=== PATIENT | female | born 1985 | race African-American/Black ===

== ENCOUNTER 2018-10-07 21:10 | Emergency (ER) | payer MEDICAID ==
[2018-10-07 21:14] VITALS: BP 123/81
[2018-10-07] MEDS ORDERED: METF500T17 PO (21:18)
[2018-10-07 21:45] LABS: HCG UR SG 1.028 (1.003-1.030)
[2018-10-07 21:50] LABS: MICROSCOPIC INDICATED
[2018-10-07 21:51] LABS: CULTURE INDICATED? YES
== END 2018-10-07 23:10 | disposition home or self-care (01) ==
LOC: ED 21:44
DX: O23.11 Infections of bladder in pregnancy, first trimester (principal); Z3A.01 Less than 8 weeks gestation of pregnancy
CPT/HCPCS: 81001; 81025; 82962; 87086; 99283

== ENCOUNTER 2018-10-16 22:04 | Emergency (ER) | payer MEDICAID ==
[~2018-10-16] VITALS: Ht 167.6 cm; Wt 116.6 kg
[~2018-10-16 22:04] MED LIST: METF500T17 PO
[2018-10-17 00:28] LABS: BASOPHILS # (AUTO) 0.15 x10^3/uL (0-0.1); BASOPHILS % (AUTO) 1 % (0-1); EOSINOPHILS # (AUTO) 0.39 x10^3/uL (0-0.4); EOSINOPHILS % (AUTO) 2 % (1-7); LYMPHOCYTES % (AUTO) 19 % (22-44); MD NO; MEAN CORPUSCULAR HEMOGLOBIN 22.6 pg (27.0-34.8); MEAN CORPUSCULAR HGB CONC 32.1 g/dL (32.4-35.8); MEAN CORPUSCULAR VOLUME 70.3 fL (80-100); MEAN PLATELET VOLUME 8.5 fL (7.4-10.4); MONOCYTES # (AUTO) 1.13 x10^3/uL (0.2-0.8); MONOCYTES % (AUTO) 6 % (2-9); NEUTROPHILS # (AUTO) 12.87 x10^3/uL (1.8-6.8); NEUTROPHILS % (AUTO) 72 % (42-75); PLATELET COUNT 471 x10^3/uL (130-400); RED BLOOD COUNT 5.09 x10^6/uL (3.82-5.3); RED CELL DISTRIBUTION WIDTH 17.7 % (9.6-15.2)
[2018-10-17] MEDS ORDERED: ONDANSETRON ODT 4 MG PO ONE (00:30)
[2018-10-17 00:37] LABS: ALANINE AMINOTRANSFERASE 16 U/L (12-78); ALBUMIN 3.7 g/dL (3.4-5.0); ANION GAP 7 mmol/L (5-15); CALCIUM 9.1 mg/dL (8.5-10.1); CHLORIDE 107 mmol/L (98-107); CREATININE 0.85 mg/dL (0.55-1.02)
[2018-10-17] MEDS ORDERED: ONDANSETRON ODT 4 MG ONE (00:43)
[2018-10-17 00:54] LABS: ALKALINE PHOSPHATASE 93 U/L (45-117); BILIRUBIN,TOTAL 0.4 mg/dL (0.2-1.0); TOTAL PROTEIN 7.9 g/dL (6.4-8.2)
[2018-10-17 01:11] LABS: CULTURE INDICATED? YES; MICROSCOPIC INDICATED
[2018-10-17] MEDS ORDERED: SODIUM CHLORIDE 0.9% 1,000ML IVBOLUS ONE (01:30)
[2018-10-17] MEDS ORDERED: ACETAMINOPHEN 1,000 MG/100 ML IV IVPB STA (01:31)
[2018-10-17] MEDS ORDERED: ACETAMINOPHEN 650 MG SUPP PR STA (01:40)
[2018-10-17] MEDS ORDERED: ACETAMINOPHEN 650 MG SUPP ONE (01:45)
[2018-10-17] MEDS ORDERED: DIPHENHYDRAMINE 50 MG/ML, 1ML ONE (01:57)
[2018-10-17] MEDS ORDERED: DIPHENHYDRAMINE 50 MG/ML, 1ML IVPush ONE (02:00)
--- NOTE | 2018-10-17 02:20 | NUR ---
PT HERE FOR A BAD MONTERROSO. PT REPORTS HER BG HIGH AND IS 7 WEEKS . 146 BG IN TRIAGE
--- NOTE | 2018-10-17 02:21 | NUR ---
GIVEN MED IV WAS STARTED PT IS RESTING VSS STABLE
--- NOTE | 2018-10-17 03:26 | NUR ---
GIVEN DC INSTRUCTION PT UNDERSTOOD PT UP AMBULATED TO CHECK OUT IV WAS OUT
[2018-10-17 03:27] VITALS: BP 104/45
== END 2018-10-17 03:31 | disposition home or self-care (01) ==
LOC: ED 23:59
DX: G43.909 Migraine, unspecified, not intractable, without status migrainosus (principal)
CPT/HCPCS: 36415; 76801; 80053; 81001; 84702; 85025; 87086; 96361; 96374; 99284; J1200; J7030; Q0162

== ENCOUNTER 2018-10-25 20:56 | Emergency (ER) | payer MEDICAID ==
[~2018-10-25] VITALS: Ht 167.6 cm; Wt 113.9 kg
--- NOTE | 2018-10-25 21:46 | NUR ---
PT SET UP FOR PELVIC REQUESTED PER PA. ON APPROPRIATE GURNEY. AWARE FOR NEED OF UA. STATES UNABLE TO AT THIS TIME.
[2018-10-25] MEDS ORDERED: ONDANSETRON ODT 4 MG PO ONE (22:00)
--- NOTE | 2018-10-25 22:02 | NUR ---
PT STILL UNABLE TO PROVIDE UA. STATES "LET ME TRY IN A BIT."
[2018-10-25 22:25] LABS: BASOPHILS # (AUTO) 0.13 x10^3/uL (0-0.1); BASOPHILS % (AUTO) 1 % (0-1); EOSINOPHILS % (AUTO) 1 % (1-7); LYMPHOCYTES # (AUTO) 1.89 x10^3/uL (1-3.4); LYMPHOCYTES % (AUTO) 13 % (22-44); MD NO; MEAN CORPUSCULAR HEMOGLOBIN 23.1 pg (27.0-34.8); MEAN CORPUSCULAR HGB CONC 32.3 g/dL (32.4-35.8); MEAN CORPUSCULAR VOLUME 71.5 fL (80-100); MEAN PLATELET VOLUME 8.3 fL (7.4-10.4); MONOCYTES # (AUTO) 1.13 x10^3/uL (0.2-0.8); MONOCYTES % (AUTO) 8 % (2-9); NEUTROPHILS # (AUTO) 11.09 x10^3/uL (1.8-6.8); NEUTROPHILS % (AUTO) 77 % (42-75); PLATELET COUNT 356 x10^3/uL (130-400); RED BLOOD COUNT 4.89 x10^6/uL (3.82-5.3); RED CELL DISTRIBUTION WIDTH 17.7 % (9.6-15.2)
[2018-10-25 22:34] LABS: ALBUMIN 3.4 g/dL (3.4-5.0); ANION GAP 6 mmol/L (5-15); CALCIUM 9.2 mg/dL (8.5-10.1); CHLORIDE 107 mmol/L (98-107)
[2018-10-25 22:38] LABS: ALANINE AMINOTRANSFERASE 13 U/L (12-78); ALKALINE PHOSPHATASE 85 U/L (45-117); BILIRUBIN,TOTAL 0.3 mg/dL (0.2-1.0); CREATININE 0.81 mg/dL (0.55-1.02); TOTAL PROTEIN 7.5 g/dL (6.4-8.2)
[2018-10-25 23:17] LABS: WET PREP WBCS MODERATE (FEW)
[2018-10-25 23:21] LABS: CLUE CELLS NONE SEEN (NONE SEEN)
[2018-10-25] MEDS ORDERED: AZITHROMYCIN 250 MG TABLET PO ONE (23:30)
[2018-10-25] MEDS ORDERED: CEFTRIAXONE 250 MG IM ONE (23:30)
[2018-10-25] MEDS ORDERED: ONDANSETRON ODT 4 MG ONE (23:30)
[2018-10-25] MEDS ORDERED: CEFTRIAXONE 250 MG ONE (23:30)
[2018-10-25] MEDS ORDERED: AZITHROMYCIN 250 MG TABLET ONE (23:30)
[2018-10-25] MEDS ORDERED: PROCHLORPERAZINE 5 MG/ML, 2ML ONE (23:48)
[2018-10-25] MEDS ORDERED: DIPHENHYDRAMINE 25 MG CAPSULE ONE (23:49)
[2018-10-25] MEDS ORDERED: ACETAMINOPHEN 500 MG TABLET ONE (23:49)
[2018-10-26] MEDS ORDERED: DIPHENHYDRAMINE 25 MG CAPSULE PO ONE
[2018-10-26] MEDS ORDERED: PROCHLORPERAZINE 5 MG/ML, 2ML IM ONE
[2018-10-26] MEDS ORDERED: ACETAMINOPHEN 500 MG TABLET PO ONE
[2018-10-26 00:03] VITALS: BP 131/80
== END 2018-10-26 00:05 | disposition home or self-care (01) ==
LOC: ED 21:35
DX: O23.591 Infection of other part of genital tract in pregnancy, first trimester (principal); Z3A.08 8 weeks gestation of pregnancy; E11.9 Type 2 diabetes mellitus without complications
CPT/HCPCS: 36415; 80053; 85025; 87210; 87491; 87591; 87808; 96372; 99284; J0696; J0780; Q0162; Q0163